=== PATIENT | male | born 1955 | race Caucasian/White ===

== ENCOUNTER 2022-05-17 01:24 | Observation (INO) | payer MEDICARE ==
[2022-05-17] MEDS ORDERED: D50W 50 ml Abboject IV ONE (01:27)
[2022-05-17] MEDS ORDERED: D50W 50ML Vial IV ONE (01:28)
[2022-05-17] MEDS ORDERED: DEXTROSE 10% 250 ML 250 ML IV SCH (01:30)
[2022-05-17] MEDS ORDERED: DEXTROSE 10% 250 ML 250 ML IV ONE (01:31)
[2022-05-17 01:55] LABS: A-aADO2 62; ABG SITE RIGHT BRACHIAL; ARTERIAL BLD GAS O2 SATURATION 96.1 % (95-100); ARTERIAL BLOOD GAS BASE EXCESS 0.8 (-2.0-2.0); ARTERIAL BLOOD GAS FIO2 28 %; ARTERIAL BLOOD GAS PCO2 46 mmHg (35-45); ARTERIAL BLOOD GAS PO2 80 mmHg (75-100); ARTERIAL BLOOD GAS pH 7.37 (7.35-7.45); CARBOXYHEMOGLOBIN 0.3 % THgb (0.0-6.9); HCO3- 26.6 (22-28); HGB O2 SAT 95.2 g/dF (94-100); Lactic Acid 0.9 (0.4-2.0); Methhemoglobin 0.5 % (1.4-1.5)
[2022-05-17 01:55] LABS: Absolute Neutrophil Ct (ANC) 5.23 x10^3/uL (1.4-6.9); Basophil (Absolute #) 0.04 x10^3/uL (0-0.4); Eosinophil % 5.7 % (0.00-5.0); Eosinophil (Absolute #) 0.43 x10^3/uL (0-0.5); Hematocrit 41.4 % (42-50); Hemoglobin 13.7 g/dL (12.5-18.0); Lymphocytes % 17.2 % (24.0-44.0); Mean Cell Volume 88.1 fL (78-100); Mean Corpuscular Hemoglobin 29.1 pg (26-32); Mean Corpuscular Hgb Concent. 33.1 g/dL (32-36); Mean Platelet Volume 10.4 fL (7.5-11.0); Monocyte (Absolute #) 0.51 x10^3/uL (0.0-1.3); Monocytes % 6.8 % (0.0-12.0); Neutrophil % 69.3 % (36.0-66.0); Platelet Count 252 x10^3/uL (150-450); Red Cell Distribution Width 13.2 % (11.5-14.0); White Blood Count 7.6 x10^3/uL (4.0-10.5)
[2022-05-17 02:12] LABS: ALBUMIN 3.8 g/dL (3.5-5.0); ANION GAP 15.2 MEQ/L (5-15); BILIRUBIN,TOTAL 0.8 mg/dL (0.2-1.3); Calcium 8.9 mg/dL (8.4-10.2); Creatinine 1 4.74 mg/dL (0.66-1.25); EST GLOMERULAR FILTRATION RATE 13.2 ML/MIN; MAGNESIUM 2.7 mg/dL (1.6-2.3); Potassium 3.8 mmol/L (3.5-5.1); Total Protein 7.2 g/dL (6.3-8.2)
--- NOTE | 2022-05-17 02:27 | ERPHSYRPT ---
- History of Present Illness Time Seen by Provider: 05/17/22 01:50 Source: patient, family, EMS Exam Limitations: clinical condition Patient Subjective Stated Complaint: per ems, pt was found diaphoretic and unresponsive at home. pt's blood surgar on arrival of ems was 32. pt repsonsive to painful stimuli, will wake up and answers some questions approp. Triage Nursing Assessment: pt lethargic, will wake and answer some questions approp. skin clammy. pupils reactive. rt below the knee amputation. respirations nonlabored with lungs cta. Physician History: 67 years old with history of diabetes mellitus, right below-knee amputation, chronic kidney disease stage IV, hypertension, hyperlipidemia is brought in the ER with chief complaint of unresponsiveness and hypoglycemia. Prior EMS/significant other patient took his routine dose of Lantus around 1030/11 PM and after that started to have sweating, feeling as if he was going to pass out. He was given sugar orally but did not improve and initial blood sugar was in 115 and after few minutes dropped to 25. On EMS arrival it was 32. He was given half ampule of D50 and improved to low 100s. It was dropping again and received another half ampule and on presentation in the ER it is 96. Patient is sleepy, maintaining his vitals and response to painful stimuli and some verbal. Like patient reports she does not want to be intubated and explained to me the a bbreviation of DNR. Denies any pain. History is limited. Timing/Duration: hour(s) (1), sudden, worse Severity: severe Modifying Factors: Improves With: other Allergies/Adverse Reactions: morphine Allergy (Severe, Verified 05/17/22 02:11) Anaphylactic Reaction Home Medications: Amlodipine Besylate [Norvasc] 10 mg PO DAILY 05/17/22 [History] Cyanocobalamin (Vitamin B-12) [Vitamin B-12] 1,000 mcg PO DAILY 05/17/22 [History] Ergocalciferol (Vitamin D2) [Vitamin D2] 50,000 unit PO Q7D 05/17/22 [History] Indapamide 2.5 mg PO DAILY 05/17/22 [History] Labetalol HCl 100 mg [Trandate 100 MG] 100 mg PO BID 05/17/22 [History] Levothyroxine Sodium 50 Mcg [Synthroid 50 Mcg] 50 mcg PO DAILY 05/17/22 [History] Hx Tetanus, Diphtheria Vaccination/Date Given: No Hx Influenza Vaccination/Date Given: No Hx Pneumococcal Vaccination/Date Given: No Immunizations Up to Date: No Travel Risk - International Travel Have you traveled outside of the country in past 3 weeks: No - Coronavirus Screening Are you exhibiting any of the following symptoms?: No Close contact with a COVID-19 positive Pt in past 14-21 Days: No - Vaccine Status Have you recieved a Covid-19 vaccination: No - Review of Systems All Other Systems: Unable due to condition - Past Medical History ENT History: Cataracts Cardiac History: Hypertension Endocrine Medical History: Diabetes Type II History: Renal Disease Other Medical History: visually impaired, hx of necrotic tumors with sepsis, rt bka. stage 4 renal disease - Past Surgical History Past Surgical History: Yes Musculoskeletal: Amputation Other Surgical History: rt bka, tumor removal rt upper leg - Social History Smoking Status: Never smoker Exposure to second hand smoke: No Drug Use: none Patient Lives Alone: No - Nursing Vital Signs Nursing Vital Signs: Initial Vital Signs Temperature 96.2 F 05/17/22 01:36 Pulse Rate 65 05/17/22 01:36 Respiratory Rate 18 05/17/22 01:36 Blood Pressure 143/76 05/17/22 01:36 O2 Sat by Pulse Oximetry 94 L 05/17/22 01:36 Pain Scale Pain Intensity 0 - Physical Exam General Appearance: lethargy Eye Exam: No scleral icterus Ears, Nose, Throat Exam: normal ENT inspection, TMs normal, pharynx normal, dry mucous membranes Neck Exam: normal inspection, non-tender, supple Respiratory Exam: normal breath sounds, lungs clear Cardiovascular Exam: regular rate/rhythm, normal heart sounds Gastrointestinal/Abdomen Exam: soft, normal bowel sounds, No tenderness Back Exam: normal inspection Extremity Exam: other Neurologic Exam: other (Sleepy, arousable to painful stimuli and some verbal, answers few questions. Bilateral equal strength in upper extremities. Moving lower extremities bilaterally. Full neuro exam cannot be done.), No facial droop, No slurred speech Skin Exam: normal color SpO2 Interpretation: borderline oxygenation SpO2: 94 O2 Delivery: Nasal Cannula - Course EKG Interpreted by Me: RATE (67), Sinus Rhythm, Left Amery Deviation, prolonged QT interval, Non-specific ST Changes, Other (LVH, poor R wave progression) Ordered Tests: Medication Summary Discontinued Medications Generic Name Dose Route Start Last Admin Trade Name Freq PRN Reason Stop Dose Admin Albuterol/Ipratropium 3 ml 05/17/22 07:00 Ipratropium/Albuterol Sulfate 3 Ml Ampul.Neb IH 06/16/22 06:59 Q6HRT MANASA Amlodipine Besylate 10 mg 05/17/22 10:00 05/18/22 09:01 Amlodipine Besylate 5 Mg Tablet PO 06/16/22 09:59 10 mg DAILY MANASA Administration Cyanocobalamin 1,000 mcg 05/17/22 10:00 05/18/22 09:02 Cyanocobalamin 500 Mcg Tablet PO 06/16/22 09:59 1,000 mcg DAILY MANASA Administration Dextrose 50 ml 05/17/22 01:28 05/17/22 01:30 Dextrose 50%-Water 50 Ml Vial IV 05/17/22 01:29 50 ml STAT ONE Administration Dextrose Confirm 05/17/22 01:27 Dextrose 50%-Water 50 Ml Abboject Administered 05/17/22 01:28 Dose 50 ml IV .STK-MED ONE Ergocalciferol 50,000 unit 05/17/22 08:45 Ergocalciferol (Vitamin D2) 50,000 Unit Capsule PO 06/16/22 08:44 Q7D PRN Ergocalciferol 50,000 unit 05/17/22 11:00 05/17/22 17:09 Ergocalciferol (Vitamin D2) 50,000 Unit Capsule PO 06/16/22 10:59 50,000 unit Q7D MANASA Administration Dextrose 250 mls @ 75 mls/hr 05/17/22 01:30 05/17/22 01:32 Dextrose 10% 250 Ml IV 06/16/22 01:29 75 mls/hr .Q3H20M MANASA Administration Protocol Azithromycin 500 mg in 250 mls @ 250 mls/hr 05/17/22 02:42 05/17/22 03:24 Zithromax 500 Mg/ 250 Ml Nacl Premix IV 05/17/22 03:41 250 ml/hr STAT STA 250 mls/hr Administration Ceftriaxone Sodium/Dextrose 1 g in 50 mls @ 100 mls/hr 05/17/22 02:42 05/17/22 03:24 Rocephin 1 Gm-D5w 50 Ml Bag IV 05/17/22 03:11 100 ml/hr STAT STA 100 mls/hr Administration Azithromycin Confirm 05/17/22 03:18 Zithromax 500 Mg/ 250 Ml Nacl Premix Administered 05/17/22 03:19 Dose 500 mg in 250 mls @ ud IV .STK-MED ONE Ceftriaxone Sodium/Dextrose Confirm 05/17/22 03:18 Rocephin 1 Gm-D5w 50 Ml Bag Administered 05/17/22 03:19 Dose 1 g in 50 mls @ ud IV .STK-MED ONE Dextrose Confirm 05/17/22 01:31 Dextrose 10% 250 Ml Administered 05/17/22 01:32 Dose 250 mls @ ud IV .STK-MED ONE Sodium Chloride 1,000 mls @ 100 mls/hr 05/17/22 04:24 Sodium Chloride 0.9% 1000 Ml IV 06/16/22 04:23 .Q10H MANASA Azithromycin 500 mg in 250 mls @ 250 mls/hr 05/17/22 22:00 05/17/22 21:46 Zithromax 500 Mg/ 250 Ml Nacl Premix IV 06/16/22 21:59 250 mls/hr Q24H22 MANASA Administration Ceftriaxone Sodium/Dextrose 1 g in 50 mls @ 100 mls/hr 05/17/22 22:00 09/28 22:51 Rocephin 1 Gm-D5w 50 Ml Bag IV 05/20/22 21:59 100 mls/hr Q24H22 MANASA Administration Insulin Glargine 20 unit 05/17/22 22:00 Insulin Glargine 1 Unit SQ 06/16/22 21:59 HS MANASA Insulin Human Lispro 15 unit 05/17/22 12:00 05/17/22 18:24 Insulin Lispro 1 Unit SQ 06/16/22 11:59 15 unit TIDWMEALS MANASA Administration Labetalol HCl 100 mg 05/17/22 10:00 05/18/22 09:02 Labetalol Hcl 100 Mg Tablet PO 06/16/22 09:59 100 mg BID MANASA Administration Levothyroxine Sodium 50 mcg 05/17/22 10:00 07/12/22 09:02 Levothyroxine Sodium 50 Mcg Tablet PO 06/16/22 09:59 50 mcg DAILY MANASA Administration Miscellaneous Information 1 each 05/17/22 09:00 Medication Intervention 1 Each Each 06/16/22 08:59 .RN TO CHECK MANASA Ondansetron HCl 4 mg 05/17/22 04:24 Ondansetron Hcl 4 Mg/2 Ml Vial IV 06/16/22 04:23 Q6H PRN PRN NAUSEA/VOMITING Lab/Rad Data: Laboratory Result Diagrams 05/17/22 01:51 05/17/22 01:51 Laboratory Results 05/17/22 05/17/22 05/17/22 Range/Units 03:48 02:53 02:46 WBC (4.0-10.5) x10^3/uL RBC (4.1-5.6) x10^6/uL Hgb (12.5-18.0) g/dL Hct (42-50) % MCV (78-100) fL MCH (26-32) pg MCHC (32-36) g/dL RDW (11.5-14.0) % Plt Count (150-450) x10^3/uL MPV (7.5-11.0) fL Gran % (36.0-66.0) % Immature Gran % (Auto) (0.00-0.4) % Nucleat RBC Rel Count (0.00-0.1) % Eos # (Auto) (0-0.5) x10^3/uL Immature Gran # (Auto) (0.00-0.03) x10^3u/L Absolute Lymphs (auto) (1.0-4.6) x10^3/uL Absolute Monos (auto) (0.0-1.3) x10^3/uL Absolute Nucleated RBC (0.00-0.01) x10^3u/L Lymphocytes % (24.0-44.0) % Monocytes % (0.0-12.0) % Eosinophils % (0.00-5.0) % Basophils % (0.0-0.4) % Absolute Granulocytes (1.4-6.9) x10^3/uL Basophils # (0-0.4) x10^3/uL Puncture Site pCO2 (35-45) mmHg pO2 (75-100) mmHg Base Excess (-2.0-2.0) O2 Saturation (94-100) g/dF ABG pH (7.35-7.45) ABG HCO3 (22-28) ABG O2 Sat (Measured) (95-100) % Ashkan Test A-a Gradient a/A Ratio Hemoglobin Carboxyhemoglobin (0.0-6.9) % THgb Methemoglobin (1.4-1.5) % Potassium (3.5-5.1) Temperature C POC O2 Flow Rate % Sodium (137-145) mmol/L Chloride (98-107) mmol/L Carbon Dioxide (22-30) mmol/L Anion Gap (5-15) MEQ/L BUN (9-20) mg/dL Creatinine (0.66-1.25) mg/dL Estimated GFR ML/MIN Glucose (74-106) mg/dL POC Glucometer 250 H 216 H (74 to 106) mg/dL Lactic Acid (0.4-2.0) Calcium (8.4-10.2) mg/dL Magnesium (1.6-2.3) mg/dL Total Bilirubin (0.2-1.3) mg/dL AST (17-59) U/L ALT (0-50) U/L Alkaline Phosphatase (38-126) U/L Troponin I (0.000-0.034) ng/mL NT-Pro-B Natriuret Pep (0-900) pg/mL Serum Total Protein (6.3-8.2) g/dL Albumin (3.5-5.0) g/dL Lipase (23-300) U/L Procalcitonin (0.030-0.080) ng/mL Influenza Type A Ag NEGATIVE (NEGATIVE) Influenza Type B Ag NEGATIVE (NEGATIVE) RSV (PCR) NEGATIVE (Negative) SARS-CoV-2 (PCR) NEGATIVE (NEGATIVE) 05/17/22 05/17/22 05/17/22 Range/Units 01:51 01:51 01:51 WBC (4.0-10.5) x10^3/uL RBC (4.1-5.6) x10^6/uL Hgb (12.5-18.0) g/dL Hct (42-50) % MCV (78-100) fL MCH (26-32) pg MCHC (32-36) g/dL RDW (11.5-14.0) % Plt Count (150-450) x10^3/uL MPV (7.5-11.0) fL Gran % (36.0-66.0) % Immature Gran % (Auto) (0.00-0.4) % Nucleat RBC Rel Count (0.00-0.1) % Eos # (Auto) (0-0.5) x10^3/uL Immature Gran # (Auto) (0.00-0.03) x10^3u/L Absolute Lymphs (auto) (1.0-4.6) x10^3/uL Absolute Monos (auto) (0.0-1.3) x10^3/uL Absolute Nucleated RBC (0.00-0.01) x10^3u/L Lymphocytes % (24.0-44.0) % Monocytes % (0.0-12.0) % Eosinophils % (0.00-5.0) % Basophils % (0.0-0.4) % Absolute Granulocytes (1.4-6.9) x10^3/uL Basophils # (0-0.4) x10^3/uL Puncture Site pCO2 (35-45) mmHg pO2 (75-100) mmHg Base Excess (-2.0-2.0) O2 Saturation (94-100) g/dF ABG pH (7.35-7.45) ABG HCO3 (22-28) ABG O2 Sat (Measured) (95-100) % Ashkan Test A-a Gradient a/A Ratio Hemoglobin Carboxyhemoglobin (0.0-6.9) % THgb Methemoglobin (1.4-1.5) % Potassium 3.8 (3.5-5.1) Temperature C POC O2 Flow Rate % Sodium 141 (137-145) mmol/L Chloride 105 (98-107) mmol/L Carbon Dioxide 25 (22-30) mmol/L Anion Gap 15.2 H (5-15) MEQ/L BUN 55 H (9-20) mg/dL Creatinine 4.74 H (0.66-1.25) mg/dL Estimated GFR 13.2 ML/MIN Glucose 163 H (74-106) mg/dL POC Glucometer (74 to 106) mg/dL Lactic Acid (0.4-2.0) Calcium 8.9 (8.4-10.2) mg/dL Magnesium 2.7 H (1.6-2.3) mg/dL Total Bilirubin 0.80 (0.2-1.3) mg/dL AST 17 (17-59) U/L ALT 13 (0-50) U/L Alkaline Phosphatase 75 (38-126) U/L Troponin I 0.026 (0.000-0.034) ng/mL NT-Pro-B Natriuret Pep 468 (0-900) pg/mL Serum Total Protein 7.2 (6.3-8.2) g/dL Albumin 3.8 (3.5-5.0) g/dL Lipase 52 (23-300) U/L Procalcitonin 0.201 H (0.030-0.080) ng/mL Influenza Type A Ag (NEGATIVE) Influenza Type B Ag (NEGATIVE) RSV (PCR) (Negative) SARS-CoV-2 (PCR) (NEGATIVE) 05/17/22 05/17/22 05/17/22 Range/Units 01:51 01:45 01:44 WBC 7.6 (4.0-10.5) x10^3/uL RBC 4.70 (4.1-5.6) x10^6/uL Hgb 13.7 (12.5-18.0) g/dL Hct 41.4 L (42-50) % MCV 88.1 (78-100) fL MCH 29.1 (26-32) pg MCHC 33.1 (32-36) g/dL RDW 13.2 (11.5-14.0) % Plt Count 252 (150-450) x10^3/uL MPV 10.4 (7.5-11.0) fL Gran % 69.3 H (36.0-66.0) % Immature Gran % (Auto) 0.5 H (0.00-0.4) % Nucleat RBC Rel Count 0.0 (0.00-0.1) % Eos # (Auto) 0.43 (0-0.5) x10^3/uL Immature Gran # (Auto) 0.04 H (0.00-0.03) x10^3u/L Absolute Lymphs (auto) 1.30 (1.0-4.6) x10^3/uL Absolute Monos (auto) 0.51 (0.0-1.3) x10^3/uL Absolute Nucleated RBC 0.00 (0.00-0.01) x10^3u/L Lymphocytes % 17.2 L (24.0-44.0) % Monocytes % 6.8 (0.0-12.0) % Eosinophils % 5.7 H (0.00-5.0) % Basophils % 0.5 (0.0-0.4) % Absolute Granulocytes 5.23 (1.4-6.9) x10^3/uL Basophils # 0.04 (0-0.4) x10^3/uL Puncture Site RIGHT BRACHIAL pCO2 46 H (35-45) mmHg pO2 80 (75-100) mmHg Base Excess 0.8 (-2.0-2.0) O2 Saturation 95.2 (94-100) g/dF ABG pH 7.37 (7.35-7.45) ABG HCO3 26.6 (22-28) ABG O2 Sat (Measured) 96.1 (95-100) % Ashkan Test NOT APPLICABLE A-a Gradient 62 a/A Ratio 0.56 Hemoglobin 14.0 Carboxyhemoglobin 0.3 (0.0-6.9) % THgb Methemoglobin 0.5 L (1.4-1.5) % Potassium 4.0 (3.5-5.1) Temperature 37.0 C POC O2 Flow Rate 28 % Sodium (137-145) mmol/L Chloride (98-107) mmol/L Carbon Dioxide (22-30) mmol/L Anion Gap (5-15) MEQ/L BUN (9-20) mg/dL Creatinine (0.66-1.25) mg/dL Estimated GFR ML/MIN Glucose (74-106) mg/dL POC Glucometer 158 H (74 to 106) mg/dL Lactic Acid 0.9 (0.4-2.0) Calcium (8.4-10.2) mg/dL Magnesium (1.6-2.3) mg/dL Total Bilirubin (0.2-1.3) mg/dL AST (17-59) U/L ALT (0-50) U/L Alkaline Phosphatase (38-126) U/L Troponin I (0.000-0.034) ng/mL NT-Pro-B Natriuret Pep (0-900) pg/mL Serum Total Protein (6.3-8.2) g/dL Albumin (3.5-5.0) g/dL Lipase (23-300) U/L Procalcitonin (0.030-0.080) ng/mL Influenza Type A Ag (NEGATIVE) Influenza Type B Ag (NEGATIVE) RSV (PCR) (Negative) SARS-CoV-2 (PCR) (NEGATIVE) - Progress Progress: improved Progress Note: 05/17/22 02:40 67 years old is evaluated for altered mental status, hypoglycemia. His blood sugar was around 96 again while in the ER, given another D50 half ampule and started on D10 initially at 75 mL/h and then 50 mL/h. EKG did not show any acute ST elevation, CT head is negative for any acute finding. Chest x-ray reviewed by me showed cardiomegaly with right-sided infiltrative process and will start on antibiotics. Has CKD which is stable around its baseline. Has elevated magnesium and patient seems to be a little dehydrated. Lactate is normal. ABG did not show acidosis, hypoxia or hypercapnia. Discussed with patient and significant other in detail and they want to stay with DNR CODE STATUS Discussed with and patient is being admitted. Discussed with : Mo Will see patient in: hospital (observation) Counseled pt/family regarding: lab results, diagnosis, rad results - Departure Departure Disposition: Observation Clinical Impression: Altered mental status, Hypoglycemia, Pneumonia Condition: Fair Critical Care Time: Yes Critical Care Time(excluding separately billable procedures): Critical 30-74 mins
[2022-05-17] MEDS ORDERED: Zithromax 500 MG/ 250 ML NaCl Premix 500 MG/250 ML IVPB IV STA (02:42)
[2022-05-17] MEDS ORDERED: ROCEPHIN 1 Gm-D5w 50 ml Bag** 1 G/50 ML IVPB IV STA (02:42)
[2022-05-17] MEDS ORDERED: ROCEPHIN 1 Gm-D5w 50 ml Bag** 1 G/50 ML IVPB IV ONE (03:18)
[2022-05-17] MEDS ORDERED: Zithromax 500 MG/ 250 ML NaCl Premix 500 MG/250 ML IVPB IV ONE (03:18)
[2022-05-17 03:31] LABS: INFLUENZA A NEGATIVE (NEGATIVE); INFLUENZA B NEGATIVE (NEGATIVE); RESPIRATORY SYNCTIAL VIRUS NEGATIVE (Negative); SARS-CoV-2 Xpert Express NEGATIVE (NEGATIVE)
[2022-05-17] MEDS ORDERED: Zofran 4 MG/2 ML VIAL IV PRN (04:24)
[2022-05-17] MEDS ORDERED: Sodium Chloride 0.9% 1000 ML 1,000 ML IV SCH (04:24)
[2022-05-17] MEDS ORDERED: DUONEB 0.5-3 MG/3 ml Neb IH SCH (07:00)
[2022-05-17] MEDS ORDERED: VITAMIN D2 PO PRN (08:45)
--- NOTE | 2022-05-17 08:48 | XRAY ---
Indication: Unresponsive. Comparison: None Portable chest underinflated with minimal bibasilar subsegmental atelectasis and a few tiny calcified granulomas. No focal infiltrate, consolidation, or large effusion. Heart not enlarged. Bony thorax intact with mild osteopenia, degenerative changes, and old left 4 rib fracture. Impression: Nonacute underinflated chest with chronic features.
--- NOTE | 2022-05-17 08:50 | XRAY ---
Indication: Unresponsive. Stroke. Multiple contiguous axial images obtained through the head without contrast. Comparison: None Age-appropriate global atrophy and mild/moderate periventricular degenerative micro-ischemia bilaterally. No acute intracranial hemorrhage, abnormal extra-axial fluid collection, or mass effect. Fourth ventricle is midline without hydrocephalus bony calvarium intact. Mild mucosal thickening right ethmoid sinus. Remaining paranasal sinuses and mastoid air cells are clear. Impression: Nonacute senile brain. Minimal paranasal sinus disease. Comment: Preliminary interpretation made by [facility]. No critical discrepancy.
[2022-05-17] MEDS ORDERED: MEDICATION INTERVENTION MC SCH (09:00)
[2022-05-17] MEDS: Vitamin B-12 500 MCG PO SCH (09:50)
[2022-05-17] MEDS: SYNTHROID 50 MCG PO SCH (09:51)
[2022-05-17] MEDS: NORVASC 5 MG PO SCH (09:51)
[2022-05-17] MEDS: Trandate 100 MG PO SCH ×2 (09:51→21:47)
[2022-05-17] MEDS ORDERED: NON-FORMULARY ITEM (Amlodipine Besylate [Norvasc] 10 MG Tablet) PO SCH (10:00)
[2022-05-17] MEDS ORDERED: NON-FORMULARY ITEM (Cyanocobalamin (Vitamin B-12) [Vitamin B-12] 1,000 MCG Capsule) PO SCH (10:00)
[2022-05-17] MEDS ORDERED: INDAPAMIDE 2.5 MG PO SCH (10:00)
[2022-05-17] MEDS ORDERED: NON-FORMULARY ITEM (Insulin Lispro 1 UNIT Ml) SQ SCH (12:00)
[2022-05-17 12:06] LABS: WBC 0-2 /HPF (0-5)
[2022-05-17 12:08] LABS: Appearance CLEAR (CLEAR); Bilirubin NEGATIVE (NEGATIVE); Glucose 500 mg/dL (NEGATIVE); Ketones NEGATIVE (NEGATIVE); RBC TRACE HEMOLYZED Ery/ul (0-5)
[2022-05-17 12:09] LABS: Dipstick done @ ? MAIN LAB; Nitrite NEGATIVE (NEGATIVE); Protein,Urine Dip >=300 (Negative); Urobilinogen 0.2 mg/dL (0-1)
[2022-05-17 14:51] LABS: Urine Cultured Indicated? NO
[2022-05-17] MEDS: HUMALOG SQ SCH ×2 (15:52→18:24)
[2022-05-17] MEDS: VITAMIN D2 PO SCH ×2 (15:53→17:09)
[2022-05-17] MEDS ORDERED: ROCEPHIN 1 Gm-D5w 50 ml Bag** 1 G/50 ML IVPB IV SCH (22:00)
[2022-05-17] MEDS ORDERED: Lantus Insulin SQ SCH (22:00)
[2022-05-17] MEDS ORDERED: Zithromax 500 MG/ 250 ML NaCl Premix 500 MG/250 ML IVPB IV SCH (22:00)
[2022-05-18 05:13] VITALS: BP 144/73
[2022-05-18 05:36] LABS: Absolute Neutrophil Ct (ANC) 5.21 x10^3/uL (1.4-6.9); Basophil (Absolute #) 0.04 x10^3/uL (0-0.4); Eosinophil % 5.4 % (0.00-5.0); Eosinophil (Absolute #) 0.44 x10^3/uL (0-0.5); Hematocrit 39.8 % (42-50); Lymphocyte (Absolute #) 1.99 x10^3/uL (1.0-4.6); Lymphocytes % 24.6 % (24.0-44.0); Mean Cell Volume 87.7 fL (78-100); Mean Corpuscular Hemoglobin 28.6 pg (26-32); Mean Corpuscular Hgb Concent. 32.7 g/dL (32-36); Mean Platelet Volume 10.6 fL (7.5-11.0); Monocyte (Absolute #) 0.38 x10^3/uL (0.0-1.3); Monocytes % 4.7 % (0.0-12.0); Neutrophil % 64.6 % (36.0-66.0); Platelet Count 255 x10^3/uL (150-450); Red Blood Count 4.54 x10^6/uL (4.1-5.6); Red Cell Distribution Width 13.4 % (11.5-14.0); White Blood Count 8.1 x10^3/uL (4.0-10.5)
[2022-05-18 06:10] LABS: ALBUMIN 3.6 g/dL (3.5-5.0); ANION GAP 17.2 MEQ/L (5-15); BILIRUBIN,TOTAL 0.5 mg/dL (0.2-1.3); Calcium 8.5 mg/dL (8.4-10.2); Creatinine 1 4.45 mg/dL (0.66-1.25); EST GLOMERULAR FILTRATION RATE 14.2 ML/MIN; Total Protein 6.8 g/dL (6.3-8.2)
[2022-05-18 08:17] VITALS: PULSE 78
[2022-05-18] MEDS: NORVASC 5 MG PO SCH (09:01)
[2022-05-18] MEDS: SYNTHROID 50 MCG PO SCH (09:02)
[2022-05-18] MEDS: Vitamin B-12 500 MCG PO SCH (09:02)
[2022-05-18] MEDS: Trandate 100 MG PO SCH (09:02)
--- NOTE | 2022-05-18 09:39 | CONS ---
CONSULT DATE: 05/17/2022 REASON FOR CONSULT: Evaluation of increased BUN and creatinine. HISTORY: Andi Jackson is a very pleasant 67-year-old gentleman who has history of chronic kidney disease stage IV approaching stage V. The patient has comorbidities of diabetes mellitus type II, hypertension and peripheral vascular disease. Baseline creatinine in the recent past had been around 4 mg%. His risk factors have been uncontrolled most of his life. He also has history of right below knee amputation. The patient was brought in by EMS because of lethargy. The patient was hypoglycemic. The patient was noted to have right sided infiltrate in the emergency room, was diagnosed with pneumonia and was started on antibiotic. Creatinine was 5.24 and was started on fluids. Renal consultation was called for increase in creatinine. REVIEW OF SYSTEMS: Feels fine. No cough, phlegm or fever at this time. Leg swelling is stable. Voiding well. No vomiting or diarrhea. System review was negative. Ultrasound reviewed, pertinent mentioned here and in the history of present illness. PAST MEDICAL HISTORY: Diabetes mellitus type II. Hypertension. Chronic kidney disease stage IV-V. Fluid retention and edema. Peripheral vascular disease. Hypothyroidism. PAST SURGICAL HISTORY: Right below knee amputation. MEDICATIONS: Lantus, Humalog, amlodipine, labetalol, Indapamide, vitamin B12, vitamin D2. Details of doses were noted. In hospital medications were reviewed. ALLERGIES: MORPHINE. SOCIAL HISTORY: History of smoking present. No alcohol abuse. No drug abuse. FAMILY HISTORY: No history of renal problems in the family. PHYSICAL EXAMINATION: Reveals a gentleman. Vital signs were reviewed. HEENT: Normocephalic, atraumatic, slightly pale conjunctivae, nonicteric sclera. NECK: Supple. No JVD. CHEST: Clear. CVS: S1, S2 normal. ABDOMEN: Soft, nontender. No organomegaly. EXTREMITIES: No cyanosis, clubbing or edema. SKIN: No skin rash. NEUROLOGIC: Alert, awake, oriented x3. ASSESSMENT: 1) ACUTE KIDNEY INJURY ON CHRONIC KIDNEY DISEASE STAGE IV VERSUS PROGRESSION OF CHRONIC KIDNEY DISEASE TO STAGE V. Creatinine was 5.2 on admission and now 4.74. Etiology of acute kidney injury could have been result of dehydration, hemodynamic instability, now resolved. No signs of uremia. No fluid overload. Potassium is normal. No urgent need for renal replacement therapy. The patient has poor insight, has refused renal replacement therapy or treatment options in the recent past. Continue to educate. 2) FLUID RETENTION/EDEMA, STABLE: Okay to continue Indapamide. 3) HYPERTENSION: Continue labetalol, Indapamide and amlodipine. 4) HYPOGLYCEMIA: Most likely because of progressive kidney disease. Avoid long acting insulin. 5) HYPOTHYROIDISM: Continue levothyroxine.
--- NOTE | 2022-05-18 13:38 | PCM.SSS ---
History of Present Illness - Chief Complaint Chief Complaint: Altered mental status, hypoglycemia History of Present Illness: is a 67 year old male with IDDM2 uncontrolled for years with CRF now end stage . Patient collapsed at home and was unresonsive ,EMS reports glucose of 25. Monica ent was treated in ER with IV fluids until glucose stable and he was admited to OBS.. - Review of Systems Constitutional: Weakness Eyes: Other (cataracs told needs removed) Ears, Nose, & Throat: No Symptoms Respiratory: No Symptoms Cardiac: No Symptoms Abdominal/Gastrointestinal: No Symptoms Genitourinary Symptoms: No Symptoms Musculoskeletal: Other (amputee) Skin: No Symptoms Medications & Allergies Home Medications: Home Medication List Amlodipine Besylate [Norvasc] 10 mg PO DAILY 05/17/22 [History Confirmed ] Cyanocobalamin (Vitamin B-12) [Vitamin B-12] 1,000 mcg PO DAILY 05/17/22 [History Confirmed 05/17/22] Ergocalciferol (Vitamin D2) [Vitamin D2] 50,000 unit PO Q7D 05/17/22 [History Confirmed 05/17/22] Indapamide 2.5 mg PO DAILY 05/17/22 [History Confirmed 05/17/22] Labetalol HCl 100 mg [Trandate 100 MG] 100 mg PO BID 05/17/22 [History Confirmed 05/17/22] Levothyroxine Sodium 50 Mcg [Synthroid 50 Mcg] 50 mcg PO DAILY 05/17/22 [History Confirmed 05/17/22] Insulin Lispro [Humalog] 10 unit SQ TIDWMEALS #0 05/18/22 [Rx Confirmed 05/17/22] Allergies/Adverse Reactions: Allergies Allergy/AdvReac Type Severity Reaction Status Date / Time morphine Allergy Severe Anaphylactic Verified 05/17/22 02:11 Reaction - Past Medical History Past Medical History: Yes Neurological History: No Pertinent History ENT History: Cataracts Cardiac History: Hypertension Respiratory History: No Pertinent History Endocrine Medical History: Diabetes Type II Musculoskelatal History: No Pertinent History GI Medical History: No Pertinent History History: Renal Disease Pyscho-Social History: No Pertinent History Male Reproductive Disorders: No Pertinent History Comment: visually impaired, hx of necrotic tumors with sepsis, rt bka. stage 4 renal disease - Past Surgical History Past Surgical History: Yes Neuro Surgical History: No Pertinent History Cardiac History: No Pertinent History Respiratory Surgery: No Pertinent History Musculskeletal Surgical Hx: Amputation Other Surgical History: rt bka, tumor removal rt upper leg, fixed deviated septum and removed polyps - Social History Smoking Status: Never smoker Exposure to second hand smoke: No Alcohol: None Drug Use: none - Physical Exam Vital Signs: Vital Signs - 24 hr Temp Pulse Resp BP Pulse Ox 05/18/22 08:00 98.2 F 78 18 144/73 96 05/18/22 04:00 98.7 F 80 17 144/73 94 L 05/17/22 23:14 98.7 F 84 16 140/75 94 L 05/17/22 19:26 99.3 F 83 16 166/79 94 L 05/17/22 16:00 99.1 F 81 19 156/73 95 General Appearance: no apparent distress (resting,fiance is at the bedside) Neurologic Exam: alert, oriented x 3, normal mood/affect Eye Exam: eyes nml inspection Ears, Nose, Throat Exam: normal ENT inspection Neck Exam: normal inspection Respiratory Exam: diminished breath sounds (bases no rales or ronchi or wheezing) Cardiovascular Exam: regular rate/rhythm Gastrointestinal/Abdomen Exam: soft, normal bowel sounds (nontender) Rectal Exam: not done Back Exam: normal inspection Extremity Exam: amputations Skin Exam: normal color, warm, rash Results - Labs Lab/Micro Results: Lab Results-Last 24 Hours 05/17/22 05/17/22 05/17/22 Range/Units 14:04 16:40 21:19 WBC (4.0-10.5) x10^3/uL RBC (4.1-5.6) x10^6/uL Hgb (12.5-18.0) g/dL Hct (42-50) % MCV (78-100) fL MCH (26-32) pg MCHC (32-36) g/dL RDW (11.5-14.0) % Plt Count (150-450) x10^3/uL MPV (7.5-11.0) fL Gran % (36.0-66.0) % Immature Gran % (Auto) (0.00-0.4) % Nucleat RBC Rel Count (0.00-0.1) % Eos # (Auto) (0-0.5) x10^3/uL Immature Gran # (Auto) (0.00-0.03) x10^3u/L Absolute Lymphs (auto) (1.0-4.6) x10^3/uL Absolute Monos (auto) (0.0-1.3) x10^3/uL Absolute Nucleated RBC (0.00-0.01) x10^3u/L Lymphocytes % (24.0-44.0) % Monocytes % (0.0-12.0) % Eosinophils % (0.00-5.0) % Basophils % (0.0-0.4) % Absolute Granulocytes (1.4-6.9) x10^3/uL Basophils # (0-0.4) x10^3/uL Sodium (137-145) mmol/L Potassium (3.5-5.1) mmol/L Chloride (98-107) mmol/L Carbon Dioxide (22-30) mmol/L Anion Gap (5-15) MEQ/L BUN (9-20) mg/dL Creatinine (0.66-1.25) mg/dL Estimated GFR ML/MIN Glucose (74-106) mg/dL POC Glucometer TNP 232 H Calcium (8.4-10.2) mg/dL Total Bilirubin (0.2-1.3) mg/dL AST (17-59) U/L ALT (0-50) U/L Alkaline Phosphatase (38-126) U/L Troponin I < 0.012 (0.000-0.034) ng/mL Serum Total Protein (6.3-8.2) g/dL Albumin (3.5-5.0) g/dL Urine WBC (Auto) (0-5) /HPF Urine RBC (Auto) (0-2) /HPF U Epithel Cells (Auto) (FEW) /HPF Urine Bacteria (Auto) (NEGATIVE) /HPF Ur Culture Indicated? 05/17/22 05/18/22 05/18/22 Range/Units Unknown 05:00 05:00 WBC 8.1 (4.0-10.5) x10^3/uL RBC 4.54 (4.1-5.6) x10^6/uL Hgb 13.0 (12.5-18.0) g/dL Hct 39.8 L (42-50) % MCV 87.7 (78-100) fL MCH 28.6 (26-32) pg MCHC 32.7 (32-36) g/dL RDW 13.4 (11.5-14.0) % Plt Count 255 (150-450) x10^3/uL MPV 10.6 (7.5-11.0) fL Gran % 64.6 (36.0-66.0) % Immature Gran % (Auto) 0.2 (0.00-0.4) % Nucleat RBC Rel Count 0.0 (0.00-0.1) % Eos # (Auto) 0.44 (0-0.5) x10^3/uL Immature Gran # (Auto) 0.02 (0.00-0.03) x10^3u/L Absolute Lymphs (auto) 1.99 (1.0-4.6) x10^3/uL Absolute Monos (auto) 0.38 (0.0-1.3) x10^3/uL Absolute Nucleated RBC 0.00 (0.00-0.01) x10^3u/L Lymphocytes % 24.6 (24.0-44.0) % Monocytes % 4.7 (0.0-12.0) % Eosinophils % 5.4 H (0.00-5.0) % Basophils % 0.5 (0.0-0.4) % Absolute Granulocytes 5.21 (1.4-6.9) x10^3/uL Basophils # 0.04 (0-0.4) x10^3/uL Sodium 139 (137-145) mmol/L Potassium 4.0 (3.5-5.1) mmol/L Chloride 106 (98-107) mmol/L Carbon Dioxide 19 L (22-30) mmol/L Anion Gap 17.2 H (5-15) MEQ/L BUN 56 H (9-20) mg/dL Creatinine 4.45 H (0.66-1.25) mg/dL Estimated GFR 14.2 ML/MIN Glucose 183 H (74-106) mg/dL POC Glucometer Calcium 8.5 (8.4-10.2) mg/dL Total Bilirubin 0.50 (0.2-1.3) mg/dL AST 17 (17-59) U/L ALT 11 (0-50) U/L Alkaline Phosphatase 68 (38-126) U/L Troponin I (0.000-0.034) ng/mL Serum Total Protein 6.8 (6.3-8.2) g/dL Albumin 3.6 (3.5-5.0) g/dL Urine WBC (Auto) 0-2 (0-5) /HPF Urine RBC (Auto) NONE (0-2) /HPF U Epithel Cells (Auto) NONE (FEW) /HPF Urine Bacteria (Auto) NONE (NEGATIVE) /HPF Ur Culture Indicated? NO 05/18/22 Range/Units 07:27 WBC (4.0-10.5) x10^3/uL RBC (4.1-5.6) x10^6/uL Hgb (12.5-18.0) g/dL Hct (42-50) % MCV (78-100) fL MCH (26-32) pg MCHC (32-36) g/dL RDW (11.5-14.0) % Plt Count (150-450) x10^3/uL MPV (7.5-11.0) fL Gran % (36.0-66.0) % Immature Gran % (Auto) (0.00-0.4) % Nucleat RBC Rel Count (0.00-0.1) % Eos # (Auto) (0-0.5) x10^3/uL Immature Gran # (Auto) (0.00-0.03) x10^3u/L Absolute Lymphs (auto) (1.0-4.6) x10^3/uL Absolute Monos (auto) (0.0-1.3) x10^3/uL Absolute Nucleated RBC (0.00-0.01) x10^3u/L Lymphocytes % (24.0-44.0) % Monocytes % (0.0-12.0) % Eosinophils % (0.00-5.0) % Basophils % (0.0-0.4) % Absolute Granulocytes (1.4-6.9) x10^3/uL Basophils # (0-0.4) x10^3/uL Sodium (137-145) mmol/L Potassium (3.5-5.1) mmol/L Chloride (98-107) mmol/L Carbon Dioxide (22-30) mmol/L Anion Gap (5-15) MEQ/L BUN (9-20) mg/dL Creatinine (0.66-1.25) mg/dL Estimated GFR ML/MIN Glucose (74-106) mg/dL POC Glucometer 169 H Calcium (8.4-10.2) mg/dL Total Bilirubin (0.2-1.3) mg/dL AST (17-59) U/L ALT (0-50) U/L Alkaline Phosphatase (38-126) U/L Troponin I (0.000-0.034) ng/mL Serum Total Protein (6.3-8.2) g/dL Albumin (3.5-5.0) g/dL Urine WBC (Auto) (0-5) /HPF Urine RBC (Auto) (0-2) /HPF U Epithel Cells (Auto) (FEW) /HPF Urine Bacteria (Auto) (NEGATIVE) /HPF Ur Culture Indicated? Microbiology 05/17/22 02:50 Blood Culture - Preliminary Blood NO GROWTH TO DATE 05/17/22 01:51 Blood Culture - Preliminary Blood NO GROWTH TO DATE Accuchecks Date 05/18/22 Date 05/17/22 Date 05/17/22 Time 21:24 Time 17:04 - Radiology Impressions Radiology Exams & Impressions: Radiology Procedures Category Date Time Status CHEST 1 VIEW (PORTABLE) Stat Exams 05/17/22 01:48 Completed HEAD WITHOUT CONTRAST [CT] Stat Exams 05/17/22 01:49 Completed Assessment/Plan (1) Altered mental status Status: Resolved Assessment & Plan: duet to hypoglycemia Code(s): R41.82 - ALTERED MENTAL STATUS, UNSPECIFIED (2) Hypoglycemia Status: Resolved Assessment & Plan: Nephrology consult discontinued basal insulin due to renal failure Code(s): E16.2 - HYPOGLYCEMIA, UNSPECIFIED (3) CRF (chronic renal failure) Status: Acute Qualifiers: Chronic kidney disease stage: stage 5 Qualified Code(s): N18.5 - Chronic kidney disease, stage 5 Assessment & Plan: patient refuses dialysis at this time Hospital Summary - Hospital Course Hospital Course: Patient has been at his baseline mentally since hypoglycemia resolved. Basal insulin was discontinued and regular insulin held . Tolerating carb controlled diet ,observed overnight without further incident. Patient is in end stage renal dz but is refusing dialysis. Consult with [employer] ,Dr Dedrick de la torre who explained basal insulin has built up/not metabolizing due to renal failure, causing hypoglycemia . Patient was discharged under the care of his fiance and will call sugars to me q 2 days. Remain off basal insulin and decreased regular insulin to 10 units per meal. I will see him next week. Clinically patient did not show pneumonia,CXR read as atelectasis. No antibiotics given at discharge. - Vitals & Intake/Output Vital Signs: Vital Signs Temperature 98.2 F 05/18/22 08:00 Pulse Rate 78 05/18/22 08:00 Respiratory Rate 18 05/18/22 08:00 Blood Pressure 144/73 05/18/22 08:00 O2 Sat by Pulse Oximetry 96 05/18/22 08:00 Intake & Output: Intake & Output 05/16/22 05/17/22 05/18/22 05/19/22 11:59 11:59 11:59 11:59 Intake Total 240 720 Output Total 750 Balance 240 -30 Weight 106.6 kg 102.4 kg - Lab Result Diagrams: 05/18/22 05:00 05/18/22 05:00 Lab Results-Last 24 Hrs: Lab Results-Last 24 Hours 05/17/22 05/17/22 05/17/22 Range/Units 14:04 16:40 21:19 WBC (4.0-10.5) x10^3/uL RBC (4.1-5.6) x10^6/uL Hgb (12.5-18.0) g/dL Hct (42-50) % MCV (78-100) fL MCH (26-32) pg MCHC (32-36) g/dL RDW (11.5-14.0) % Plt Count (150-450) x10^3/uL MPV (7.5-11.0) fL Gran % (36.0-66.0) % Immature Gran % (Auto) (0.00-0.4) % Nucleat RBC Rel Count (0.00-0.1) % Eos # (Auto) (0-0.5) x10^3/uL Immature Gran # (Auto) (0.00-0.03) x10^3u/L Absolute Lymphs (auto) (1.0-4.6) x10^3/uL Absolute Monos (auto) (0.0-1.3) x10^3/uL Absolute Nucleated RBC (0.00-0.01) x10^3u/L Lymphocytes % (24.0-44.0) % Monocytes % (0.0-12.0) % Eosinophils % (0.00-5.0) % Basophils % (0.0-0.4) % Absolute Granulocytes (1.4-6.9) x10^3/uL Basophils # (0-0.4) x10^3/uL Sodium (137-145) mmol/L Potassium (3.5-5.1) mmol/L Chloride (98-107) mmol/L Carbon Dioxide (22-30) mmol/L Anion Gap (5-15) MEQ/L BUN (9-20) mg/dL Creatinine (0.66-1.25) mg/dL Estimated GFR ML/MIN Glucose (74-106) mg/dL POC Glucometer TNP 232 H Calcium (8.4-10.2) mg/dL Total Bilirubin (0.2-1.3) mg/dL AST (17-59) U/L ALT (0-50) U/L Alkaline Phosphatase (38-126) U/L Troponin I < 0.012 (0.000-0.034) ng/mL Serum Total Protein (6.3-8.2) g/dL Albumin (3.5-5.0) g/dL Urine WBC (Auto) (0-5) /HPF Urine RBC (Auto) (0-2) /HPF U Epithel Cells (Auto) (FEW) /HPF Urine Bacteria (Auto) (NEGATIVE) /HPF Ur Culture Indicated? 05/17/22 05/18/22 05/18/22 Range/Units Unknown 05:00 05:00 WBC 8.1 (4.0-10.5) x10^3/uL RBC 4.54 (4.1-5.6) x10^6/uL Hgb 13.0 (12.5-18.0) g/dL Hct 39.8 L (42-50) % MCV 87.7 (78-100) fL MCH 28.6 (26-32) pg MCHC 32.7 (32-36) g/dL RDW 13.4 (11.5-14.0) % Plt Count 255 (150-450) x10^3/uL MPV 10.6 (7.5-11.0) fL Gran % 64.6 (36.0-66.0) % Immature Gran % (Auto) 0.2 (0.00-0.4) % Nucleat RBC Rel Count 0.0 (0.00-0.1) % Eos # (Auto) 0.44 (0-0.5) x10^3/uL Immature Gran # (Auto) 0.02 (0.00-0.03) x10^3u/L Absolute Lymphs (auto) 1.99 (1.0-4.6) x10^3/uL Absolute Monos (auto) 0.38 (0.0-1.3) x10^3/uL Absolute Nucleated RBC 0.00 (0.00-0.01) x10^3u/L Lymphocytes % 24.6 (24.0-44.0) % Monocytes % 4.7 (0.0-12.0) % Eosinophils % 5.4 H (0.00-5.0) % Basophils % 0.5 (0.0-0.4) % Absolute Granulocytes 5.21 (1.4-6.9) x10^3/uL Basophils # 0.04 (0-0.4) x10^3/uL Sodium 139 (137-145) mmol/L Potassium 4.0 (3.5-5.1) mmol/L Chloride 106 (98-107) mmol/L Carbon Dioxide 19 L (22-30) mmol/L Anion Gap 17.2 H (5-15) MEQ/L BUN 56 H (9-20) mg/dL Creatinine 4.45 H (0.66-1.25) mg/dL Estimated GFR 14.2 ML/MIN Glucose 183 H (74-106) mg/dL POC Glucometer Calcium 8.5 (8.4-10.2) mg/dL Total Bilirubin 0.50 (0.2-1.3) mg/dL AST 17 (17-59) U/L ALT 11 (0-50) U/L Alkaline Phosphatase 68 (38-126) U/L Troponin I (0.000-0.034) ng/mL Serum Total Protein 6.8 (6.3-8.2) g/dL Albumin 3.6 (3.5-5.0) g/dL Urine WBC (Auto) 0-2 (0-5) /HPF Urine RBC (Auto) NONE (0-2) /HPF U Epithel Cells (Auto) NONE (FEW) /HPF Urine Bacteria (Auto) NONE (NEGATIVE) /HPF Ur Culture Indicated? NO 05/18/22 Range/Units 07:27 WBC (4.0-10.5) x10^3/uL RBC (4.1-5.6) x10^6/uL Hgb (12.5-18.0) g/dL Hct (42-50) % MCV (78-100) fL MCH (26-32) pg MCHC (32-36) g/dL RDW (11.5-14.0) % Plt Count (150-450) x10^3/uL MPV (7.5-11.0) fL Gran % (36.0-66.0) % Immature Gran % (Auto) (0.00-0.4) % Nucleat RBC Rel Count (0.00-0.1) % Eos # (Auto) (0-0.5) x10^3/uL Immature Gran # (Auto) (0.00-0.03) x10^3u/L Absolute Lymphs (auto) (1.0-4.6) x10^3/uL Absolute Monos (auto) (0.0-1.3) x10^3/uL Absolute Nucleated RBC (0.00-0.01) x10^3u/L Lymphocytes % (24.0-44.0) % Monocytes % (0.0-12.0) % Eosinophils % (0.00-5.0) % Basophils % (0.0-0.4) % Absolute Granulocytes (1.4-6.9) x10^3/uL Basophils # (0-0.4) x10^3/uL Sodium (137-145) mmol/L Potassium (3.5-5.1) mmol/L Chloride (98-107) mmol/L Carbon Dioxide (22-30) mmol/L Anion Gap (5-15) MEQ/L BUN (9-20) mg/dL Creatinine (0.66-1.25) mg/dL Estimated GFR ML/MIN Glucose (74-106) mg/dL POC Glucometer 169 H Calcium (8.4-10.2) mg/dL Total Bilirubin (0.2-1.3) mg/dL AST (17-59) U/L ALT (0-50) U/L Alkaline Phosphatase (38-126) U/L Troponin I (0.000-0.034) ng/mL Serum Total Protein (6.3-8.2) g/dL Albumin (3.5-5.0) g/dL Urine WBC (Auto) (0-5) /HPF Urine RBC (Auto) (0-2) /HPF U Epithel Cells (Auto) (FEW) /HPF Urine Bacteria (Auto) (NEGATIVE) /HPF Ur Culture Indicated? Micro Results-Entire Visit: Microbiology 05/17/22 02:50 Blood Culture - Preliminary Blood NO GROWTH TO DATE 05/17/22 01:51 Blood Culture - Preliminary Blood NO GROWTH TO DATE Accuchecks Date 05/18/22 Date 05/17/22 Date 05/17/22 Time 21:24 Time 17:04 - Radiology Exams Ordered Rad Exams-Entire Visit: Radiology Procedures Category Date Time Status CHEST 1 VIEW (PORTABLE) Stat Exams 05/17/22 01:48 Completed HEAD WITHOUT CONTRAST [CT] Stat Exams 05/17/22 01:49 Completed - Procedures and Test Procedures and Tests throughout Hospitalization: Therapy Orders & Screens 05/17/22 04:24 Oxygen Nasal Cannula 2 lpm Comment: 05/17/22 04:43 Respiratory Therapy Assessment ONCE Comment: Diagnosis: Altered mental status, hypoglycemia - Discharge Disposition: Home, Self-Care Condition: Fair Prescriptions: Continue Ergocalciferol (Vitamin D2) [Vitamin D2] 50,000 unit PO Q7D Levothyroxine Sodium 50 Mcg [Synthroid 50 Mcg] 50 mcg PO DAILY Cyanocobalamin (Vitamin B-12) [Vitamin B-12] 1,000 mcg PO DAILY Amlodipine Besylate [Norvasc] 10 mg PO DAILY Labetalol HCl 100 mg [Trandate 100 MG] 100 mg PO BID Indapamide 2.5 mg PO DAILY Changed Insulin Lispro [Humalog] 10 unit SQ TIDWMEALS #0 Discontinued Insulin Glargine [Lantus Insulin] 40 unit SQ HS Instructions: Low Blood Sugar, Adult (DC) Additional Instructions: Call Dr. Mahmood every couple days to report blood sugars. Follow up with: HAILY LIPSCOMB [CONSULTING PHYSICIAN] - 05/24/22 12:40 pm NICOL MAHMOOD DO [Primary Care Provider] - 05/25/22 3:30 pm Forms: Discharge Instructions
[2022-05-20 08:27] VITALS: O2SAT 94
== END 2022-05-18 11:39 | disposition home or self-care (01) ==
LOC: ED 01:24 → MED SURG 04:04
PROVIDERS: ADMIT General Practice; ATTEND Family Medicine
DX: R41.82 Altered mental status, unspecified (principal); E16.2 Hypoglycemia, unspecified; I12.0 Hypertensive chronic kidney disease with stage 5 chronic kidney disease or end stage renal disease; E11.22 Type 2 diabetes mellitus with diabetic chronic kidney disease; E03.9 Hypothyroidism, unspecified; E78.5 Hyperlipidemia, unspecified; Z79.899 Other long term (current) drug therapy; Z20.828 Contact with and (suspected) exposure to other viral communicable diseases; Z89.511 Acquired absence of right leg below knee
CPT/HCPCS: 0241U; 36000; 36415; 36600; 70450; 71045; 80053; 81015; 82375; 82607; 82803; 82947; 83605; 83690; 83735; 83880; 84145; 84443; 84484; 85025; 87040; 93005; 93041; 94760; 96365; 96368; 96374; 99285; 93268; J0456; J0696; J1817; A9270-GY; G0378

== ENCOUNTER 2022-06-22 07:53 | Day surgery (SDC) | payer MEDICARE ==
[2022-06-22] MEDS ORDERED: Epinephrine Preservative Free 1 MG/ML IJ ONE (07:54)
[2022-06-22] MEDS ORDERED: LIDOCAINE HCL 1% 50 MG/5 ML VL PF IJ ONE (07:54)
[2022-06-22] MEDS ORDERED: Ak-Dilate OPHTHALMIC*** 1.065 ML, Cyclogyl 1% OPHTH SOL 1.065 ML, GATIFLOXACIN 0.5% OPH... OP ONE ×4 (08:00)
[2022-06-22] MEDS ORDERED: NON-FORMULARY ITEM OP ONE (08:00)
[2022-06-22] MEDS ORDERED: BETADINE 5% OPHTHALMIC 30 ML OP ONE (08:00)
[2022-06-22] MEDS ORDERED: TETRACAINE 0.5% STERI-UNIT SOL OP ONE ×2 (08:00)
[2022-06-22] MEDS ORDERED: Lactated Ringers 1,000 ML IV SCH (08:00)
[2022-06-22] MEDS ORDERED: cefUROXime sodium 0.005 GM in Sodium Chloride Flush 30 ML*** 0.5 ML IJ ONE (08:00)
[2022-06-22] MEDS ORDERED: Sodium Chloride 0.9% 1000 ML 1,000 ML IV SCH (09:15)
[2022-06-22] MEDS ORDERED: Zofran 4 MG/2 ML VIAL IV PRN (10:00)
[2022-06-22] MEDS ORDERED: ACETAZOLAMIDE 250 MG TABLET PO ONE (10:00)
[2022-06-22 11:34] VITALS: O2SAT 94
[2022-06-22 11:46] VITALS: BP 137/88; PULSE 74
== END 2022-06-22 11:45 | disposition home or self-care (01) ==
LOC: SDC 07:53
PROVIDERS: ATTEND Ophthalmology
DX: H25.811 Combined forms of age-related cataract, right eye (principal); E11.9 Type 2 diabetes mellitus without complications
CPT/HCPCS: 82947; C1780; J0171; J2001; A9270-GY

== ENCOUNTER 2023-02-24 21:06 | Emergency (ER) | payer MEDICARE ==
--- NOTE | 2023-02-24 21:40 | ERPHSYRPT ---
- History of Present Illness Time Seen by Provider: 02/24/23 21:39 Source: patient Exam Limitations: other (patient's behavior) Patient Subjective Stated Complaint: pt states I have covid and don't feel well Triage Nursing Assessment: pt came into the er via ambulance; pt was transferred to cot per staff; pt is axo x4; pt is yelling and angry; c/o not feeling well; hx covid; hypertensive; no respiratory distress; skin PDW Physician History: History difficult to obtain due to lack of patient cooperation. I was able to get that he has chronic b/l knee pain and NOLEN that is worse since testing positive for COVID at the beginning of the month. He reports weakness. He denies falling, fevers, SOB, CP or abd pain. He reports a hx of HTN and CKD stage V. Quality: constant Severity of Pain-Max: moderate Severity of Pain-Current: moderate Lower Extremities Pain: knee: bilateral Associated Symptoms: none Allergies/Adverse Reactions: morphine Allergy (Severe, Verified 02/24/23 21:08) Anaphylactic Reaction Home Medications: Amlodipine Besylate [Norvasc] 10 mg PO DAILY 05/17/22 [History] Cyanocobalamin (Vitamin B-12) [Vitamin B-12] 1,000 mcg PO DAILY 05/17/22 [History] Ergocalciferol (Vitamin D2) [Vitamin D2] 50,000 unit PO WEEKLY 05/17/22 [History] Indapamide 2.5 mg PO DAILY 05/17/22 [History] Labetalol HCl 100 mg [Trandate 100 MG] 200 mg PO BID 05/17/22 [History] Levothyroxine Sodium 50 Mcg [Synthroid 50 Mcg] 50 mcg PO DAILY 05/17/22 [History] Insulin Lispro [Humalog] 20 unit SQ TIDWMEALS 06/10/22 [History] Brimonidine Tartrate/Timolol [Brimonidine-Timolol 0.2%-0.5%] 1 drop OP TID 02/24/23 [History] Dorzolamide HCl/Timolol Maleat [Dorzolamide-Timolol Eye Drops] 1 drop OP TID 02/24/23 [History] Latanoprost/Pf [Latanoprost 0.005% Eye Drop] 1 drop OP DAILY 02/24/23 [History] Lidocaine HCl 5% Patch [Lidoderm Patch 5%] 1 patch TP DAILY 02/24/23 [History] Hx Tetanus, Diphtheria Vaccination/Date Given: No Hx Influenza Vaccination/Date Given: No Hx Pneumococcal Vaccination/Date Given: No Travel Risk - International Travel Have you traveled outside of the country in past 3 weeks: No - Coronavirus Screening Are you exhibiting any of the following symptoms?: Yes Symptoms: Headaches/Body Aches/Fatigue Close contact with a COVID-19 positive Pt in past 14-21 Days: No - Vaccine Status Have you recieved a Covid-19 vaccination: No - Review of Systems Musculoskeletal: Joint Pain (b/l knee) Neurological: Headache All Other Systems: Unable due to condition - Past Medical History Pertinent Past Medical History: Yes Neurological History: No Pertinent History ENT History: Cataracts, Glaucoma Cardiac History: Hypertension Respiratory History: No Pertinent History Endocrine Medical History: Diabetes Type II, Hyperthyroidism Musculoskeletal History: No Pertinent History GI Medical History: No Pertinent History, Other History: Renal Disease Psycho-Social History: No Pertinent History Male Reproductive Disorders: No Pertinent History Other Medical History: visually impaired, hx of necrotic tumors with sepsis, rt bka. stage 4 renal disease, gastroparosis, diaphorisis - Past Surgical History Past Surgical History: Yes Neuro Surgical History: No Pertinent History Cardiac: No Pertinent History Respiratory: No Pertinent History Musculoskeletal: Amputation Other Surgical History: rt bka, tumor removal rt upper leg, polyps removed from nose, deviated spetum repair, egd with dilation x2 - Social History Smoking Status: Never smoker Exposure to second hand smoke: No Drug Use: none Patient Lives Alone: No - Nursing Vital Signs Nursing Vital Signs: Initial Vital Signs Temperature 97.1 F 02/24/23 21:09 Pulse Rate 96 H 02/24/23 21:09 Respiratory Rate 18 02/24/23 21:09 Blood Pressure 178/118 02/24/23 21:09 O2 Sat by Pulse Oximetry 96 02/24/23 21:09 Pain Scale Pain Intensity 10 - Physical Exam General Appearance: no apparent distress Legs Exam: right leg: other (BKA) Knees Exam: bilateral knee: normal inspection, normal range of motion, no evidence of injury, bone tenderness Mental Status Exam: alert, agitated, uncooperative Skin Exam: normal color, warm, dry, No rash SpO2 Interpretation: normal SpO2: 96 O2 Delivery: Room Air - Course Nursing assessment & vital signs reviewed: Yes - Radiology Exams Left Knee X-ray Interpretation: Interpreted by me, No Fracture, Other (severe tricompartmental OA) Right Knee X-ray Interpretation: Interpreted by me, No Fracture, Other (BKA, OA, atherosclerosis) Ordered Tests: Active Orders 24 hr Category Date Time Status KNEE (1 OR 2 VIEW) Stat Exams 02/24/23 21:41 Taken KNEE (1 OR 2 VIEW) Stat Exams 02/24/23 22:14 Taken CBC Stat Lab 02/24/23 21:50 Completed CK (IN-HOUSE) [CK-Creatinine Phosphokinase] Stat Lab 02/24/23 21:50 Completed CMP Stat Lab 02/24/23 21:50 Completed Erythrocyte Sedimentation Rate Stat Lab 02/24/23 21:50 Completed Medication Summary Generic Name Dose Route Start Last Admin Trade Name Freq PRN Reason Stop Dose Admin Sodium Chloride 1,000 mls @ 50 mls/hr 02/24/23 23:00 02/24/23 22:48 Sodium Chloride 0.9% 1000 Ml IV 03/26/23 22:59 50 mls/hr .Q20H MANASA Administration Discontinued Medications Generic Name Dose Route Start Last Admin Trade Name Freq PRN Reason Stop Dose Admin Acetaminophen 975 mg 02/24/23 21:43 02/24/23 21:49 Acetaminophen 325 Mg Tablet PO 02/24/23 21:44 975 mg STAT STA Administration Acetaminophen Confirm 02/24/23 21:49 Acetaminophen 325 Mg Tablet Administered 02/24/23 21:50 Dose 975 mg .ROUTE .STK-MED ONE Lab/Rad Data: Laboratory Result Diagrams 02/24/23 21:50 02/24/23 21:50 Laboratory Results 02/24/23 02/24/23 Range/Units 21:50 21:50 WBC 10.8 H (4.0-10.5) x10^3/uL RBC 5.08 (4.1-5.6) x10^6/uL Hgb 15.2 (12.5-18.0) g/dL Hct 43.9 (42-50) % MCV 86.4 (78-100) fL MCH 29.9 (26-32) pg MCHC 34.6 (32-36) g/dL RDW 12.4 (11.5-14.0) % Plt Count 371 (150-450) x10^3/uL MPV 11.0 (7.5-11.0) fL ESR 76 H (0-15) mm/hr Sodium 134 L (137-145) mmol/L Potassium 3.2 L (3.5-5.1) mmol/L Chloride 94 L (98-107) mmol/L Carbon Dioxide 22 (22-30) mmol/L Anion Gap 21.6 H (5-15) MEQ/L BUN 103 H (9-20) mg/dL Creatinine 7.16 H (0.66-1.25) mg/dL Estimated GFR 8.2 ML/MIN Glucose 276 H (74-106) mg/dL Calcium 8.6 (8.4-10.2) mg/dL Total Bilirubin 1.20 (0.2-1.3) mg/dL AST 15 L (17-59) U/L ALT 15 (0-50) U/L Alkaline Phosphatase 98 (38-126) U/L Creatine Kinase 64 (55-170) U/L Serum Total Protein 8.3 H (6.3-8.2) g/dL Albumin 3.9 (3.5-5.0) g/dL - Progress Progress: unchanged Progress Note: 02/24/23 22:28 Cr 7.16, last Cr was 5.46 on 12/30/22. K 3.[address] Tse for nephrology. Left knee XR showed severe tricompartmental OA. 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 Will attempt to transfer to [facility] or [facility]. 02/24/23 22:39 Dr. Dawson at [facility] accepts ER to ER transfer. He requested that I start the patient on IV fluids. Discussed with : Other (Peyton Dawson) Will see patient in: ED Counseled pt/family regarding: lab results, diagnosis, need for follow-up, rad results Medical Desision Making - Diagnostic Testing Diagnostic test were ordered, analyzed, and reviewed by me: Yes Radiological Interpretation: Interpreted by me - Risk of complications The pt has a high risk of morbidity or mortality based on: Decision regarding hospitilization or escalation of hosp level of care - Departure Departure Disposition: Transfer ([facility] ER to ER) Clinical Impression: Acute renal failure Condition: Stable Critical Care Time: No Referrals: NICOL MAHMOOD DO [Primary Care Provider] - Follow up/PCP as directed Instructions: Kidney Failure (DC)
[2023-02-24] MEDS ORDERED: TYLENOL 325 MG PO STA (21:43)
[2023-02-24] MEDS ORDERED: TYLENOL 325 MG ONE (21:49)
[2023-02-24 22:04] LABS: Hematocrit 43.9 % (42-50); Hemoglobin 15.2 g/dL (12.5-18.0); Mean Cell Volume 86.4 fL (78-100); Mean Corpuscular Hemoglobin 29.9 pg (26-32); Mean Corpuscular Hgb Concent. 34.6 g/dL (32-36); Platelet Count 371 x10^3/uL (150-450); Red Blood Count 5.08 x10^6/uL (4.1-5.6); Red Cell Distribution Width 12.4 % (11.5-14.0); White Blood Count 10.8 x10^3/uL (4.0-10.5)
[2023-02-24 22:14] LABS: ALBUMIN 3.9 g/dL (3.5-5.0); ANION GAP 21.6 MEQ/L (5-15); BILIRUBIN,TOTAL 1.2 mg/dL (0.2-1.3); Calcium 8.6 mg/dL (8.4-10.2); Creatinine 1 7.16 mg/dL (0.66-1.25); EST GLOMERULAR FILTRATION RATE 8.2 ML/MIN; Potassium 3.2 mmol/L (3.5-5.1); Total Protein 8.3 g/dL (6.3-8.2)
[2023-02-24 22:16] LABS: Erythrocyte Sedimentation Rate 76 mm/hr (0-15)
[2023-02-24] MEDS ORDERED: Sodium Chloride 0.9% 1000 ML 1,000 ML ONE (22:48)
[2023-02-24] MEDS ORDERED: TRANDATE 20 MG/4 ML SYRINGE IV ONE ×2 (22:59→23:03)
[2023-02-24] MEDS ORDERED: Sodium Chloride 0.9% 1000 ML 1,000 ML IV SCH (23:00)
[2023-02-24 23:58] VITALS: BP 142/100; PULSE 96; O2SAT 98
--- NOTE | 2023-02-25 08:39 | XRAY ---
Indication: Pain. No known injury. Comparison: None 2 view left knee demonstrates osteopenia, moderate tricompartmental degenerative changes greatest medial compartment, and moderate scattered vascular calcifications. No other bony, articular, or soft tissue abnormalities.
--- NOTE | 2023-02-25 08:39 | XRAY ---
Indication: Pain. No known injury. Comparison: None 2 view right knee demonstrates osteopenia, minimal/mild tricompartmental degenerative changes greatest medial compartment, below knee amputation, and moderate scattered vascular calcifications. No other bony, articular, or soft tissue abnormalities.
== END 2023-02-24 23:59 | disposition short-term general hospital (02) ==
LOC: ED 21:06
DX: N17.9 Acute kidney failure, unspecified (principal); R53.1 Weakness; M25.561 Pain in right knee; M25.562 Pain in left knee; R51.9 Headache, unspecified; I12.0 Hypertensive chronic kidney disease with stage 5 chronic kidney disease or end stage renal disease; E11.22 Type 2 diabetes mellitus with diabetic chronic kidney disease; N18.5 Chronic kidney disease, stage 5; Z79.4 Long term (current) use of insulin; Z79.899 Other long term (current) drug therapy; Z28.310 Unvaccinated for COVID-19; Z86.16 Personal history of COVID-19
CPT/HCPCS: 36415; 73560; 80053; 82550; 85027; 85652; 96374; 99284; A9270-GY